=== PATIENT | male | born 1935 | race African-American/Black ===

== ENCOUNTER 2017-11-15 18:12 | Emergency (ER) | payer OTHER, MEDICARE ==
[~2017-11-15] VITALS: Ht 177.8 cm; Wt 75.0 kg
[2017-11-16 02:15] VITALS: BP 149/68
== END 2017-11-16 02:30 | disposition home or self-care (01) ==
LOC: ER 18:36
DX: I10 Essential (primary) hypertension (principal); Z88.5 Allergy status to narcotic agent
CPT/HCPCS: 99283; Z7610

== ENCOUNTER 2023-11-25 15:20 | Emergency (ER) | payer OTHER ==
[~2023-11-25] VITALS: Ht 175.3 cm; Wt 87.0 kg
[2023-11-25 15:22] VITALS: O2SAT 97
[2023-11-25] MEDS ORDERED: AMLODIPINE 5MG TABLET PO ONE (15:45)
[2023-11-25 20:07] LABS: BASOPHILS % 0.6 % (0.0-2.0); EOSINOPHILS % 1.6 % (0.0-5.0); HEMATOCRIT. 37.3 % (42.0-52.0); HEMOGLOBIN. 12.2 g/dL (14.0-18.0); LYMPHOCYTES % 12.7 % (20.0-50.0); MEAN CORPUSCULAR HEMOGLOBIN 29.4 pg (28.0-32.0); MEAN CORPUSCULAR HGB CONC 32.8 g/dL (31.0-37.0); MEAN CORPUSCULAR VOLUME 89.6 fL (80.0-94.0); MEAN PLATELET VOLUME 8.1 fl (7.4-10.4); MONOCYTES % 5.4 % (2.0-8.0); NEUTROPHILS % 79.7 % (40.0-76.0); PLATELET 249 x1000/uL (130-400); RED BLOOD CELL COUNT 4.16 mill/uL (4.7-6.1); WHITE BLOOD COUNT 7.9 x1000/uL (4.5-11.0)
[2023-11-25 20:14] LABS: PROTHROMBIN TIME 10.4 sec (9.6-11.0)
[2023-11-25 20:21] LABS: ALANINE AMINOTRANSFERASE 20 IU/L (10-49); ASPARTATE AMINOTRANSFERASE 50 IU/L (<34); BILIRUBIN TOTAL 0.4 mg/dL (0.1-1.0); CALCIUM 9.2 mg/dL (8.7-10.4); CARBON DIOXIDE 31 mEq/L (21-32); CHLORIDE 102 mEq/L (98-107); CREATININE 0.9 mg/dL (0.6-1.3); GLUCOSE 94 mg/dL (70-105); POTASSIUM 4.8 mEq/L (3.5-5.1); PROTEIN TOTAL 7.6 g/dL (6.0-8.3); SODIUM 136 mEq/L (136-145); TROPONIN I HIGH SENSITIVITY 18 ng/L (3.0-53); UREA NITROGEN BLOOD 11 mg/dL (9-23)
[2023-11-25 23:15] VITALS: BP 155/70; PULSE 73; RESP 20; TEMP 99
== END 2023-11-26 01:42 | disposition short-term general hospital (02) ==
LOC: ER 15:20
DX: I10 Essential (primary) hypertension (principal); R53.1 Weakness; Z88.5 Allergy status to narcotic agent
CPT/HCPCS: 36415; 80053; 84484; 85025; 99285